=== PATIENT | female | born 1965 | race Caucasian/White ===

== ENCOUNTER 2019-02-12 07:44 | Day surgery (SDC) | payer BC, OTHER ==
[2019-02-12] MEDS ORDERED: Marcaine 0.5% SDV 10 ML IJ ONE (07:45)
[2019-02-12] MEDS ORDERED: Depo-Medrol 40 MG/ML IM ONE (07:45)
[2019-02-12] MEDS ORDERED: Ketamine HCl 50 MG/ML ONE (09:32)
[2019-02-12] MEDS ORDERED: DIPRIVAN 200 MG/20 ML IV ONE (09:34)
[2019-02-12] MEDS ORDERED: Lactated Ringers 1,000 ML IV ONE (12:47)
--- NOTE | 2019-02-13 02:03 | XRAY ---
Indication: Left knee injection. Intraoperative fluoroscopy was provided for 4 seconds. A single digital spot film is submitted for interpretation. It demonstrates a needle tip projected over the left femur intercondylar notch. A mild amount of contrast has been injected for needle tip placement. Correlate with intraoperative findings/report.
--- NOTE | 2019-02-13 02:07 | XRAY ---
Indication: Right knee injection. Intraoperative fluoroscopy was provided for 11 seconds. A single digital spot image submitted for interpretation demonstrates a needle tip projected over the right femur intercondylar notch. A small amount of contrast has been injected for needle placement. Correlate with intraoperative findings/report.
--- NOTE | 2019-02-13 12:02 | XRAY ---
11 seconds fluoroscopy time in surgery for right intra-articular knee injection.
--- NOTE | 2019-02-13 12:02 | XRAY ---
4 seconds fluoroscopy time in surgery for left intra-articular knee injection.
== END 2019-02-12 10:10 | disposition home or self-care (01) ==
LOC: SDC-PAIN 07:44
PROVIDERS: ATTEND Psychiatry & Neurology Pain Medicine
DX: M17.0 Bilateral primary osteoarthritis of knee (principal); E11.9 Type 2 diabetes mellitus without complications; I10 Essential (primary) hypertension; F41.8 Other specified anxiety disorders; Z79.899 Other long term (current) drug therapy
CPT/HCPCS: 20610; 73560; 77002; 82962; J1030; J2704; Q9966

== ENCOUNTER 2019-03-05 07:26 | Day surgery (SDC) | payer BC, OTHER ==
[2019-03-05] MEDS ORDERED: Marcaine 0.5% SDV 10 ML IJ ONE (07:27)
[2019-03-05] MEDS ORDERED: Depo-Medrol 40 MG/ML IM ONE (07:27)
[2019-03-05] MEDS ORDERED: DIPRIVAN 200 MG/20 ML IV ONE (09:53)
[2019-03-05] MEDS ORDERED: Ketamine HCl 50 MG/ML ONE (09:53)
--- NOTE | 2019-03-05 12:37 | XRAY ---
Indication: Left shoulder injection. Intraoperative fluoroscopy was provided for 17 seconds. 2 digital spot images submitted for interpretation demonstrates needle tip projecting over the left superior glenohumeral joint. Small amount of contrast injected for needle tip placement. Correlate with intraoperative findings/report.
--- NOTE | 2019-03-05 14:29 | XRAY ---
17 seconds of fluoroscopy was used in surgery for a left intra-articular shoulder injection.
[2019-03-05] MEDS ORDERED: Lactated Ringers 1,000 ML IV ONE (14:47)
== END 2019-03-05 10:22 | disposition home or self-care (01) ==
LOC: SDC-PAIN 07:26
PROVIDERS: ATTEND Psychiatry & Neurology Pain Medicine
DX: M19.012 Primary osteoarthritis, left shoulder (principal); E11.9 Type 2 diabetes mellitus without complications; I10 Essential (primary) hypertension; F41.8 Other specified anxiety disorders; Z79.899 Other long term (current) drug therapy
CPT/HCPCS: 20610; 73030; 77002; 82962; J1030; J2704; Q9966

== ENCOUNTER 2019-05-07 08:28 | Day surgery (SDC) | payer BC, OTHER ==
[2019-05-07] MEDS ORDERED: Marcaine 0.5% SDV 10 ML IJ ONE (08:29)
[2019-05-07] MEDS ORDERED: DIPRIVAN 200 MG/20 ML IV ONE (09:38)
[2019-05-07] MEDS ORDERED: Ketamine HCl 50 MG/ML ONE (09:40)
--- NOTE | 2019-05-07 10:55 | XRAY ---
Indication: Left genicular nerve block. Intraoperative fluoroscopy was provided for 11 seconds. 2 digital spot images submitted for interpretation demonstrates anterior needle tips adjacent to the medial/lateral supracondyle and medial tibia plateau of the left knee. Correlate with intraoperative findings/report.
--- NOTE | 2019-05-07 11:00 | XRAY ---
11 seconds fluoroscopy time in surgery for left genicular nerve block.
[2019-05-07] MEDS ORDERED: Lactated Ringers 1,000 ML IV ONE (14:33)
== END 2019-05-07 10:15 | disposition home or self-care (01) ==
LOC: SDC-PAIN 08:28
PROVIDERS: ATTEND Psychiatry & Neurology Pain Medicine
DX: M17.12 Unilateral primary osteoarthritis, left knee (principal); E11.9 Type 2 diabetes mellitus without complications; I10 Essential (primary) hypertension; F41.8 Other specified anxiety disorders; Z79.899 Other long term (current) drug therapy
CPT/HCPCS: 64450; 73560; 77002; 82962; J2704